=== PATIENT | male | born 1950 | race Caucasian/White ===

== ENCOUNTER → 2017-09-24 11:23 | Outpatient (POV) | payer MEDICARE, BC, SELFPAY | PROVIDERS: Family Provider Family Medicine; Visit Provider Internal Medicine | DX: Z00.00 Encounter for general adult medical examination without abnormal findings (principal) ==

== ENCOUNTER → 2017-11-07 14:56 | Outpatient (CLI) | payer MEDICARE, BC, SELFPAY | LOC: RAD 14:57 → RT 16:02 | PROVIDERS: PCP Family Medicine; Visit Provider Family Medicine | DX: R55 Syncope and collapse (principal) | CPT/HCPCS: 93225; 93226 ==

== ENCOUNTER → 2017-11-13 08:25 | Outpatient (CLI) | payer MEDICARE, BC, SELFPAY ==
--- NOTE | 2017-11-13 09:10 | CT_ITS ---
CT chest wo con HISTORY: ITS.REASON: MULTIPLE LUNG NODULES,WEIGHT LOSS ORDERING PHYSICIAN: Frank Beauchamp MD PATIENT AGE: 67 years Technique: Axial images obtained. Sagittal and coronal reformatted images are also generated and reviewed. All CT scans at the facility use one or more dose reduction, viz: automated exposure control; ma/kV adjustment per patient size (including targeted exams where dose is matched to indication; i.e. head); or iterative reconstruction technique. CONTRAST: None COMPARISON: 06/03/2017 FINDINGS: There is extensive coronary artery calcification consistent with coronary artery disease. Normal heart size. No mediastinal or hilar mass is evident 4 5-mm noncalcified nodule present in the lingula unchanged. 3 mm subpleural opacity is present in the left lower lobe laterally unchanged. No new pulmonary nodules are evident. An additional 5 mm lingular opacity is unchanged. No effusions or infiltrates. No acute bony anomalies. Upper abdominal images are unremarkable. IMPRESSION: 1. Overall stable CT appearance of the chest. 2. No new nodules evident. 3. Coronary artery disease
--- NOTE | 2017-11-13 09:44 | CT_ITS ---
CT head/brain wo con HISTORY: Memory loss, confusion, altered mental status ITS.REASON: MEMORY LOSS,WEIGHT LOSS ORDERING PHYSICIAN: Frank Beauchamp MD PATIENT AGE: 67 years COMPARISON: 05 14 16 TECHNIQUE: Axial images obtained without contrast. Brain and bone windows reviewed. All CT scans at the facility use one or more dose reduction, viz: automated exposure control; ma/kV adjustment per patient size (including targeted exams where dose is matched to indication; i.e. head); or iterative reconstruction technique. FINDINGS: No midline shift, mass effect, intracranial hemorrhage, hydrocephalus, or extra-axial fluid collection is evident. There is generalized atrophy with hypoattenuation in the periventricular region consistent with ischemic gliotic change from microvascular disease The calvarium has an unremarkable appearance. There is mild opacification of the left mastoid sinus. Mild mucosal thickening involves the ethmoid sinuses and moderate mucosal thickening with near complete opacification involves the left maxillary sinus with calcifications ventrally. IMPRESSION: 1. No acute intracranial findings. 2. Atrophy with chronic ischemic changes. 3. Sinusitis
== END ==
PROVIDERS: Family Provider Family Medicine; PCP Family Medicine; Visit Provider Internal Medicine
DX: R91.1 Solitary pulmonary nodule (principal); R63.4 Abnormal weight loss; R41.3 Other amnesia
CPT/HCPCS: 70450; 71250

== ENCOUNTER → 2018-06-16 07:22 | Outpatient (CLI) | payer MEDICARE, BC, SELFPAY ==
--- NOTE | 2018-06-16 07:26 | CA_ITS ---
PROCEDURE: 2-D M-mode and color Doppler study INDICATIONS FOR THE TEST: Chest pain+ COPD Heart Murmur Tobacco Smoking Palpitations Fatigue Syncope Edema Hypertension Diabetes Mellitus Rheumatic Fever SOB COY+Obesity Hyperlipidemia+ Family History HD Additional History CP, AFIB, COPD, CA, COLOSTOMY PATIENT INFORMATION HEIGHT: 678 WEIGHT:197 GENDER: Male B/P:141/76 2-D/M-MODE INTERPRETATION: 2-D MEASUREMENTS OBSERVED VALUES IN CMS Right Ventricular Dimension (RVDd) 2.0 Interventricular Septum (Thickness)(IVsd) 1.0 Left Ventricular Internal Dimensions(LVIDd) 4.3 Left Ventricular Posterior Wall (Thickness)(LVPWd) 0.9 Aortic Root 3.1 Aortic Cusp Separation 2.2 Left Atrial Dimensions (LAD) 4.5 2D 1. Left atrium is mildly enlarged, left ventricle is normal size, mild concentric left ventricular hypertrophy, visually estimated ejection fraction 55% with no regional wall motion abnormality. 2. The right atrium and right ventricle are normal size and contractility. 3. The aortic valve is minimally thickened and fibrosed. 4. The mitral and tricuspid valvular grossly normal. 5. The pulmonic valve is poorly visualized. 6. No significant pericardial effusion noted. DOPPLER INTERROGATION: Doppler interrogation of the aortic, mitral and tricuspid valvular presence of mild mitral and tricuspid regurgitation, tricuspid regurgitation jet velocity is inadequate for calculation of the right ventricular systolic pressure, grade 1 diastolic dysfunction seen with tissue Doppler evidence of raised left atrial pressure. CONCLUSION: 1. Mildly enlarged left atrium, normal left ventricular size, mild concentric left ventricular hypertrophy, visually estimated ejection fraction of 55% with no regional wall motion abnormality, grade 1 diastolic dysfunction seen with tissue Doppler evidence of raised left atrial pressure. 2. Mild mitral and tricuspid regurgitation 3. No significant pericardial effusion noted.
--- NOTE | 2018-06-16 07:26 | NM_ITS ---
History and Indications: Coronary artery disease, hypertension, diabetes, chest pain, shortness of breath, syncope and fatigue. Procedure: Patient received a 0.4 mg intravenous Lexiscan, resting heart rate was 57 beats per resting blood pressure 149/81, with Lexiscan maximum heart rate achieved was 77 bpm which is less than 85% of the maximum predicted heart rate and a blood pressure was 156/82. With Lexiscan patient, shortness of breath and malaise, requiring intravenous Aminophyllin to reverse symptoms. Electrocardiogram: Resting echocardiogram showed sinus bradycardia, with Lexiscan there is less than 1.[address] segment depression noted from the baseline EKG. The EKG portion of the Lexiscan Myoview is nondiagnostic. Cardiac stress and resting SPECT images: Cardiac stress and resting SPECT images were obtained using technetium 99 Myoview 32.6 mCi stress and 10.1 mCi at rest. Gated SPECT further analysis of segmental wall motion and calculation of the ejection fraction also done. Cardiac stress and rest SPECT images show decreased tracer activity in the inferior wall which improves on the resting images suggestive of reversible ischemia, computer derived ejection fraction is 67% with no regional wall motion abnormality, right ventricle is normal size and contractility. Conclusion: 1. The EKG portion of the Lexiscan Myoview is nondiagnostic. 2.Scintigraphic evidence of mild reversible computer derived ejection fraction is 67% with no regional wall motion abnormality. Right ventricle is normal size and contractility. 3. Abnormal Lexiscan Myoview study.
--- NOTE | 2018-06-16 07:44 | HMH.ITSHM ---
Current Home Medications as stated by this patient Jean Marie Vasquez or provider service representative. []BISOPROLOL ATORVASTATIN AMLODIPINE TRAZODONE SERTRALINE RIVAROXABAN POTASSIUM OXYCODONE OMEPRAZOLE MONTELUKAST METFORMIN LORAZEPAM HYDROCHLOROTHIAZIDE GLIMEPIRIDE GABAPENTIN FAMOTIDINE DULOXETINE DIGOXIN CLOPIDOGREL ASA
== END ==
PROVIDERS: PCP Family Medicine; Visit Provider Internal Medicine Cardiovascular Disease
DX: E78.2 Mixed hyperlipidemia (principal); I11.9 Hypertensive heart disease without heart failure; I20.9 Angina pectoris, unspecified; I25.10 Atherosclerotic heart disease of native coronary artery without angina pectoris; I48.0 Paroxysmal atrial fibrillation; J43.2 Centrilobular emphysema; K21.9 Gastro-esophageal reflux disease without esophagitis; R06.09 Other forms of dyspnea; Z79.01 Long term (current) use of anticoagulants
CPT/HCPCS: 78452; 93017; 93306; A9502; J2785

== ENCOUNTER → 2018-06-26 11:59 | Outpatient (CLI) | payer MEDICARE, BC, SELFPAY | PROVIDERS: PCP Family Medicine; Visit Provider Internal Medicine Cardiovascular Disease | DX: E78.5 Hyperlipidemia, unspecified (principal); I11.9 Hypertensive heart disease without heart failure; I20.8 Other forms of angina pectoris; I25.10 Atherosclerotic heart disease of native coronary artery without angina pectoris; I48.91 Unspecified atrial fibrillation; J44.9 Chronic obstructive pulmonary disease, unspecified; R06.09 Other forms of dyspnea; Z01.810 Encounter for preprocedural cardiovascular examination; Z79.01 Long term (current) use of anticoagulants ==

== ENCOUNTER → 2018-06-30 14:40 | Outpatient (CLI) | payer MEDICARE, BC, SELFPAY ==
[2018-06-30 16:55] LABS: Anion Gap 16.9 mEq/L (5-15); Blood Urea Nitrogen 29 mg/dL (7-18); Calcium 9.4 mg/dL (8.5-10.1); Carbon Dioxide 26 mmol/L (21.0-32.0); Chloride 102 mmol/L (98-107); Creatinine,Serum 1.64 mg/dL (0.70-1.30); Estimated Glomerular Filt Rate 42 ml/min (>60); GFR (African American) 51 ML/MIN (>60); Glucose 119 mg/dL (74-106); Potassium 5.9 mmoL/L (3.5-5.1); Sodium 139 mmol/L (136-145)
== END ==
PROVIDERS: Visit Provider Internal Medicine
DX: R06.09 Other forms of dyspnea (principal)
CPT/HCPCS: 36415; 80048

== ENCOUNTER → 2018-07-16 13:15 | Outpatient (CLI) | payer MEDICARE, BC, SELFPAY ==
[2018-07-16 15:21] LABS: Anion Gap 13.9 mEq/L (5-15); Blood Urea Nitrogen 24 mg/dL (7-18); Calcium 8.8 mg/dL (8.5-10.1); Carbon Dioxide 27 mmol/L (21.0-32.0); Chloride 103 mmol/L (98-107); Creatinine,Serum 1.24 mg/dL (0.70-1.30); Estimated Glomerular Filt Rate 58 ml/min (>60); GFR (African American) 70 ML/MIN (>60); Glucose 113 mg/dL (74-106); Potassium 4.9 mmoL/L (3.5-5.1); Sodium 139 mmol/L (136-145)
== END ==
PROVIDERS: Visit Provider Physician Assistant
DX: E78.5 Hyperlipidemia, unspecified (principal); I11.9 Hypertensive heart disease without heart failure; I25.10 Atherosclerotic heart disease of native coronary artery without angina pectoris; I48.91 Unspecified atrial fibrillation; J44.9 Chronic obstructive pulmonary disease, unspecified; K21.9 Gastro-esophageal reflux disease without esophagitis; Z79.01 Long term (current) use of anticoagulants
CPT/HCPCS: 36415; 80048

== ENCOUNTER → 2020-02-18 13:06 | Outpatient (CLI) | payer MEDICARE, BC, SELFPAY ==
[2020-02-18 13:34] LABS: Chloride 102 mmol/L (98-107); Potassium 4.3 mmoL/L (3.5-5.1); Sodium 138 mmol/L (136-145)
[2020-02-18 13:37] LABS: Anion Gap 11.3 mEq/L (5-15); Blood Urea Nitrogen 12 mg/dl (9-20); Carbon Dioxide 29 mmol/L (22.0-30.0); Estimated Glomerular Filt Rate 50 ml/min (>60); GFR (African American) 61 ML/MIN (>60)
[2020-02-18 13:38] LABS: Calcium 9.5 mg/dl (8.4-10.2); Glucose 207 mg/dl (74-100)
[2020-02-18 13:46] LABS: NT Pro Brain Natriuretic Pep. 205 pg/mL (0-125)
== END ==
PROVIDERS: Visit Provider Physician Assistant
DX: E78.5 Hyperlipidemia, unspecified (principal); I11.9 Hypertensive heart disease without heart failure; I25.10 Atherosclerotic heart disease of native coronary artery without angina pectoris; I48.91 Unspecified atrial fibrillation; J44.9 Chronic obstructive pulmonary disease, unspecified; R60.9 Edema, unspecified; Z79.01 Long term (current) use of anticoagulants; R06.09 Other forms of dyspnea
CPT/HCPCS: 36415; 80048; 83880

== ENCOUNTER → 2020-02-29 13:03 | Outpatient (CLI) | payer MEDICARE, BC, SELFPAY ==
[2020-02-29 15:22] LABS: Chloride 94 mmol/L (98-107); Sodium 134 mmol/L (136-145)
[2020-02-29 15:25] LABS: Anion Gap 20.5 mEq/L (5-15); Blood Urea Nitrogen 28 mg/dl (9-20); Calcium 10.2 mg/dl (8.4-10.2); Carbon Dioxide 27 mmol/L (22.0-30.0); Estimated Glomerular Filt Rate 28 ml/min (>60); GFR (African American) 34 ML/MIN (>60); Glucose 300 mg/dl (74-100)
[2020-02-29 15:34] LABS: NT Pro Brain Natriuretic Pep. 126 pg/mL (0-125)
[2020-02-29 16:48] LABS: Potassium 7.5 mmoL/L (3.5-5.1)
== END ==
PROVIDERS: Visit Provider Nurse Practitioner Family
DX: E78.2 Mixed hyperlipidemia (principal); I11.9 Hypertensive heart disease without heart failure; I25.10 Atherosclerotic heart disease of native coronary artery without angina pectoris; J43.2 Centrilobular emphysema; R06.00 Dyspnea, unspecified; R60.9 Edema, unspecified; Z79.01 Long term (current) use of anticoagulants; Z95.818 Presence of other cardiac implants and grafts; I48.20 Chronic atrial fibrillation, unspecified
CPT/HCPCS: 36415; 80048; 83880

== ENCOUNTER → 2020-03-03 12:51 | Outpatient (CLI) | payer MEDICARE, BC, SELFPAY ==
[2020-03-03 13:09] LABS: Chloride 95 mmol/L (98-107); Potassium 5.6 mmoL/L (3.5-5.1); Sodium 133 mmol/L (136-145)
[2020-03-03 13:12] LABS: Anion Gap 19.6 mEq/L (5-15); Blood Urea Nitrogen 35 mg/dl (9-20); Calcium 9.5 mg/dl (8.4-10.2); Carbon Dioxide 24 mmol/L (22.0-30.0); Estimated Glomerular Filt Rate 22 ml/min (>60); GFR (African American) 26 ML/MIN (>60); Glucose 272 mg/dl (74-100)
== END ==
PROVIDERS: Internal Medicine; Visit Provider Physician Assistant
DX: E78.5 Hyperlipidemia, unspecified (principal); I11.9 Hypertensive heart disease without heart failure; I25.10 Atherosclerotic heart disease of native coronary artery without angina pectoris; I48.91 Unspecified atrial fibrillation; J44.9 Chronic obstructive pulmonary disease, unspecified; R06.00 Dyspnea, unspecified; R60.9 Edema, unspecified; Z79.01 Long term (current) use of anticoagulants; Z95.818 Presence of other cardiac implants and grafts
CPT/HCPCS: 36415; 80048

== ENCOUNTER → 2020-03-10 10:15 | Outpatient (CLI) | payer MEDICARE, BC, SELFPAY ==
[2020-03-10 10:33] LABS: Chloride 105 mmol/L (98-107); Sodium 136 mmol/L (136-145)
[2020-03-10 10:34] LABS: Potassium 4.9 mmoL/L (3.5-5.1)
[2020-03-10 10:36] LABS: Blood Urea Nitrogen 24 mg/dl (9-20); Estimated Glomerular Filt Rate 24 ml/min (>60); GFR (African American) 28 ML/MIN (>60)
[2020-03-10 10:37] LABS: Anion Gap 12.9 mEq/L (5-15); Carbon Dioxide 23 mmol/L (22.0-30.0); Glucose 222 mg/dl (74-100)
== END ==
PROVIDERS: Visit Provider Internal Medicine Cardiovascular Disease
DX: E78.2 Mixed hyperlipidemia (principal); I11.9 Hypertensive heart disease without heart failure; I25.10 Atherosclerotic heart disease of native coronary artery without angina pectoris; J43.2 Centrilobular emphysema; R06.00 Dyspnea, unspecified; R60.9 Edema, unspecified; Z01.810 Encounter for preprocedural cardiovascular examination; Z79.01 Long term (current) use of anticoagulants; Z95.818 Presence of other cardiac implants and grafts; I48.20 Chronic atrial fibrillation, unspecified
CPT/HCPCS: 36415; 80048

== ENCOUNTER → 2020-03-14 12:30 | Outpatient (CLI) | payer MEDICARE, BC, SELFPAY ==
--- NOTE | 2020-03-14 12:32 | CA_ITS ---
APPROVED REPORT EXAM: Comprehensive 2D, Doppler, and color-flow Echocardiogram Fleet Technician: Yarelis William RVT Ht: 5 ft 8 in Wt: 188lbs BSA: 1.99 BP: 98/52 mmHg Indications: CAD,A-FIB,WATCHMANS DEVICE,SOA,FATIGUE,HTN,HLD,EDEMA,COY 2D Dimensions LVOT 1.84 cm (M/F) 1.5-2.5 M-Mode Dimensions RVDd 3.30 cm (0.9-2.6) LVDd 3.94 cm (3.5-5.7) LVDs 2.37 cm (3.5-5.7) IVSd 0.56 cm (0.6-1.1) PWd 0.85 cm (0.6-1.1) EF (Teich) 71.10% FS 39.80% EDV (Teich) 67.50 mL ESV (Teich) 19.50 mL LV Diastology E/A Ratio 1.16 Mitral Valve MV A Velocity 85.00 (40-130 cm/s) Left Ventricle Left atrium is mildly enlarged, left ventricle is normal size, mild concentric left ventricular hypertrophy, visually estimated ejection fraction 55% with no regional wall motion abnormality, diastolic parameters are inconclusive. Right Ventricle Right atrium and right ventricular normal size and contractility. Aortic Valve Aortic valve is minimally thickened and fibrosed. There is no aortic stenosis or aortic insufficiency. Mitral Valve Mitral valve is grossly normal, there is mild mitral regurgitation. Tricuspid Valve Tricuspid valve grossly normal, there is mild tricuspid regurgitation. Pulmonic Valve Pulmonic valve is poorly visualized. Great Vessels Aortic root is normal size. Pericardium No significant pericardial effusion noted. Conclusion 1. Mildly enlarged left atrium, normal left ventricular size, mild concentric left ventricular hypertrophy, visually estimated ejection fraction 55% with no regional wall motion abnormality, diastolic parameters are inconclusive. 2. Mild mitral and tricuspid regurgitation. 3. No significant pericardial effusion noted. Electronically signed by : Drew Veliz, 03/14/2020 19:35:36
== END ==
PROVIDERS: PCP Family Medicine; Visit Provider Physician Assistant
DX: R06.09 Other forms of dyspnea (principal); R60.9 Edema, unspecified
CPT/HCPCS: 93306

== ENCOUNTER → 2020-03-17 13:11 | Outpatient (CLI) | payer MEDICARE, BC, SELFPAY ==
[2020-03-17 13:49] LABS: Chloride 101 mmol/L (98-107)
[2020-03-17 13:50] LABS: Potassium 4.5 mmoL/L (3.5-5.1); Sodium 138 mmol/L (136-145)
[2020-03-17 13:53] LABS: Anion Gap 12.5 mEq/L (5-15); Blood Urea Nitrogen 12 mg/dl (9-20); Calcium 8.8 mg/dl (8.4-10.2); Carbon Dioxide 29 mmol/L (22.0-30.0); Estimated Glomerular Filt Rate 50 ml/min (>60); GFR (African American) 61 ML/MIN (>60); Glucose 240 mg/dl (74-100)
== END ==
PROVIDERS: Visit Provider Physician Assistant
DX: E87.5 Hyperkalemia (principal); N18.9 Chronic kidney disease, unspecified
CPT/HCPCS: 36415; 80048

== ENCOUNTER → 2020-03-23 12:48 | Outpatient (CLI) | payer MEDICARE, BC, SELFPAY ==
--- NOTE | 2020-03-23 12:51 | US_ITS ---
APPROVED REPORT Exam Type: Lower Extremity Segmental Pressures Venue Attendant: Yarelis William RVT Indications Claudication: Bilaterally Rest Pain: Bilaterally Edema History of Smoking Risk Factors Hypertension CAD Hyperlipidemia Diabetes Pressures/Indices Right Indices Left Indices Brachial 166.00 mmHg Brachial 166.00 mmHg Low Thigh 184.00 mmHg 1.11 Low Thigh 207.00 mmHg 1.25 Calf 178.00 mmHg 1.07 Calf 192.00 mmHg 1.16 Ankle(PT) 175.00 mmHg 1.05 Ankle(PT) 178.00 mmHg 1.07 Ankle(DP) 161.00 mmHg 0.97 Ankle(DP) 152.00 mmHg 0.92 Digit 132.00 mmHg 0.80 Digit 122.00 mmHg 0.73 Findings RT ARMIDA:1.05 LT ARMIDA:1.07 RT TBI:0.80 LT TBI:0.73 NORMAL WAVEFORMS BILATERAL NORMAL PULSES BILATERAL Conclusion Normal appearing resting noninvasive lower extremity arterial study. Electronically signed by : Vick Snyder MD 03/23/2020 16:22:26
== END ==
PROVIDERS: PCP Family Medicine; Visit Provider Internal Medicine Cardiovascular Disease
DX: I73.9 Peripheral vascular disease, unspecified (principal)
CPT/HCPCS: 93923

== ENCOUNTER → 2020-04-07 11:02 | Outpatient (CLI) | payer MEDICARE, BC, SELFPAY ==
[2020-04-07 13:02] LABS: Anion Gap 17.3 mEq/L (5-15); Blood Urea Nitrogen 19 mg/dl (9-20); Calcium 9.5 mg/dl (8.4-10.2); Carbon Dioxide 25 mmol/L (22.0-30.0); Chloride 101 mmol/L (98-107); Estimated Glomerular Filt Rate 50 ml/min (>60); GFR (African American) 61 ML/MIN (>60); Glucose 196 mg/dl (74-100); Potassium 4.3 mmoL/L (3.5-5.1); Sodium 139 mmol/L (136-145)
== END ==
PROVIDERS: Visit Provider Internal Medicine Cardiovascular Disease
DX: E78.2 Mixed hyperlipidemia (principal); I11.9 Hypertensive heart disease without heart failure; I25.10 Atherosclerotic heart disease of native coronary artery without angina pectoris; I48.2 Chronic atrial fibrillation; J43.2 Centrilobular emphysema; N17.9 Acute kidney failure, unspecified; R06.00 Dyspnea, unspecified; R60.9 Edema, unspecified; Z01.810 Encounter for preprocedural cardiovascular examination; Z95.818 Presence of other cardiac implants and grafts
CPT/HCPCS: 36415; 80048

== ENCOUNTER → 2020-07-21 12:01 | Outpatient (CLI) | payer MEDICARE, BC, SELFPAY ==
[2020-07-21 15:50] LABS: Anion Gap 10.3 mEq/L (5-15); Blood Urea Nitrogen 18 mg/dl (9-20); Calcium 9.4 mg/dl (8.4-10.2); Carbon Dioxide 36 mmol/L (22.0-30.0); Chloride 96 mmol/L (98-107); Estimated Glomerular Filt Rate 37 ml/min (>60); GFR (African American) 45 ML/MIN (>60); Glucose 114 mg/dl (74-100); Potassium 4.3 mmoL/L (3.5-5.1); Sodium 138 mmol/L (136-145)
== END ==
PROVIDERS: Visit Provider Internal Medicine Cardiovascular Disease
DX: E78.5 Hyperlipidemia, unspecified (principal); I11.9 Hypertensive heart disease without heart failure; I25.10 Atherosclerotic heart disease of native coronary artery without angina pectoris; I48.91 Unspecified atrial fibrillation; J44.9 Chronic obstructive pulmonary disease, unspecified; N17.9 Acute kidney failure, unspecified; R06.00 Dyspnea, unspecified; R60.9 Edema, unspecified; Z95.818 Presence of other cardiac implants and grafts
CPT/HCPCS: 36415; 80048